=== PATIENT | female | born 1995 | race African-American/Black ===

== ENCOUNTER 2025-06-26 15:24 | Outpatient (CLI) | payer OTHER, SELFPAY ==
[2025-06-26 16:21] LABS: Hematocrit 39.8 % (37.0-47.0); Hemoglobin 13.2 g/dL (12.0-15.0); Mean Corpuscular HGB Conc 33.2 g/dl (32-36); Mean Corpuscular Hemoglobin 30.1 pg (26-34); Mean Corpuscular Volume 90.7 fl (80-100); Platelet Count Result 250 k/mm3 (150-375); Red Blood Count 4.39 M/mm3 (4.2-5.4); White Blood Count 4.7 K/mm3 (4.5-10.0)
[2025-06-26 17:06] LABS: Thyroid Stimulating Hormone Reflex 0.171 uIU/mL (0.465-4.68)
[2025-06-26 17:51] LABS: Free T4 Free Thyroxine Reflex 1.18 ng/dL (0.78-2.19)
--- OUTSIDE RECORDS SUMMARY | 2025-06-26 17:54 | XMS_ITS | Encounter Summary ---
Author Organization [facility] Address [facility] [place] [address] Care Team Providers Care Geospatial Specialist Name Role Phone Rossi Branch MANUFACTURER REPRESENTATIVE Primary Care Provider [phone] Encounter Details Date Type Department Care Team (Late st Contact Info) Description 10/06/2023 Dajie Message Enc [facility] Family Medicine - [address] [place] [address] Rossi [place] [address] Pepcid & stopping point of Carafate Social History Tobacco Use Types Packs/Day Years Used Date Smoking Tobacco: Never Smokeless Tobacco: Never Alcohol Use Standard Drinks/Week Comments Not Currently 0 (1 standard drink = 0.6 oz pure alcohol) I limit alcohol use due to family history and GERD trigger. 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
--- OUTSIDE RECORDS SUMMARY | 2025-06-26 17:54 | XMS_ITS | Encounter Summary ---
Author Organization [facility] Address [facility] [place] [address] Care Team Providers Care Leather Skinner Name Role Phone Rossi Branch USER SUPPORT SPECIALIST Primary Care Provider [phone] Encounter Details Date Type Department Care Team (Late st Contact Info) Description 10/02/2023 Gousto Message Enc [facility] Family Medicine - [address] [address] Rossi Branch NP [address] [place] [address] Upcoming appointment Social History Tobacco Use Types Packs/Day Years Used Date Smoking Tobacco: Never Assessed PHQ-2 Answer Date Recorded Patient Health Questionnaire-2 Score 0 10/05/2023 Comments Unknown Sex and Gender Information Value Date Recorded Sex Assigned at Not on file 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 Question Answer Date of Assessment Author Status Little interest or pleasure in doing things Not at all 10/05/2023 2:02 PM CDT Mala Lockhart MA Active Feeling down, depressed, or hopeless Not at all 10/05/2023 2:02 PM CDT Mala Lockhart MA Activ e Patient Health Questionnaire-2 Score 0 10/05/2023 2:02 PM CDT Mala Lockhart MA Active * Question Answer Date of Assessment Author Status Trouble falling or staying asleep, or sleeping too much Not at all 10/05/2023 2:02 PM CDT Mala Lockhart MA Active Feeling tired or having little energy Not at all 10/05/2023 2:02 PM CDT Mala Lockhart MA Active Poor appetite or overeating Not at all 10/05/2023 2:02 PM RAFALT Mala Lockhart MA Active Feeling bad about yourself - or that you are a failure or have let yourself or your family down Not at all 10/05/2023 2:02 PM CDT Mala Lockhart MA Active Trouble concentrating on things, such as reading the newspaper or watching television Not at all 10/05/2023 2:02 PM CDT Mala Lockhart MA Active Moving or speaking so slowly that other people could have noticed? Or the opposite - being so fidgety or restless that you have been moving around a lot more than usual. Not at all 10/05/2023 2:02 PM CDT Mala Lockhart MA Active Thoughts that you would be better off or hurting yourself in some way Not at all 10/05/2023 2:02 PM CDT Mala Lockhart MA Active Patient Health Questionnaire-9 Score 0 10/05/2023 2:02 PM CDT Mala Lockhart MA Active * Over the last 2 weeks, how often have you been bothered by any of the following problems? Question Answer Date of Assessment Author Status Feeling nervous, anxious, or on edge 0 10/05/2023 2:03 PM CDT Mala Lockhart MA Activ e Not being able to stop or control worrying 0 10/05/2023 2:03 PM CDT Mala Lockhart MA Acti ve Worrying too much about different things 0 10/05/2023 2:03 PM CDT Mala Lockhart MA Acti ve Trouble relaxing 0 10/05/2023 2:03 PM CDT Mala Lockhart MA Active Being so restless that it is hard to sit still 0 10/05/2023 2:03 PM CDT Mala Lockhart MA Act alexander Becoming easily annoyed or irritable 0 10/05/2023 2:03 PM CDT Mala Lockhart MA Activ e Feeling afraid as if something awful might happen 0 10/05/2023 2:03 PM CDT Kip Lockhart MA Active ETHAN-7 Total Score 0 10/05/2023 2:03 PM CDT Mala Lockhart MA Active documented as of this encounter Plan of Treatment Not on file documented as of this encounter Visit Diagnoses Not on filedocumented in this encounter Care Teams Leather Skinner Relationship Specialty Start Date End Date Rossi [place] [address] PCP - General NURSE PRACTITIONER 10/05/23 documented as of this encounter
--- OUTSIDE RECORDS SUMMARY | 2025-06-26 17:54 | XMS_ITS | Clinical Summary ---
Author Organization [facility] Address [facility] [place] [address] Care Team Providers Care Agricultural And Forestry Supervisor Name Role Phone Jose Carlos, Esther JOHANNY Primary Care Provider [phone] Allergies Active Allergy Reactions Criticality Noted Date Comments Hydrocodone Diarrhea,Nausea Only,Headache Medium 10/04 Medications azithromycin (ZITHROMAX) 500 mg tabletIndication s:Campylobacteri osis,Change in stool Take 1 tablet (500 mg total) by mouth daily. 3 tablet 11/04/2023 Active Active Problems Problem Noted Date Diagnosed Date GERD (gastroesophageal reflux disease) 0 PCOS (polycystic ovarian syndrome) 12/02/2016 Family History Medical History Relation Comments Asthma Brother 1 Drug Abuse Brother 2 Asthma Father Cancer Maternal Grandmother Alcohol Abuse Maternal Uncle 1 Alcohol Abuse Maternal Uncle 2 Alcohol Abuse Maternal Uncle 3 Alcohol Abuse Mother Hypertension Mother Relation Status Comments Brother 1 Brother 2 Father Maternal Grandmother Maternal Uncle 1 Maternal Uncle 2 Maternal Uncle 3 Mother Social History Tobacco Use Types Packs/Day Years Used Date Smoking Tobacco: Never Smokeless Tobacco: Never Tobacco Cessation:Counseling Given: No Alcohol Use Standard Drinks/Week Comments Not Currently 0 (1 standard drink = 0.6 oz pure alcohol) I limit alcohol use due to family history and GERD trigger. 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 Gender Identity Not on file Sexual Orientation Not on file Last Filed Vital Signs Vital Sign Reading Time Taken Comments Blood Pressure 122/74 11/04/2023 1:59 PM CDT Pulse 101 11/04/2023 1:59 PM CDT Temperature 37.2 C (98.9 F) 10/05/2023 2:04 PM CDT Respiratory Rate 12 10/05/2023 2:04 PM CDT Oxygen Saturation 100% 11/04/2023 1:59 PM CDT Inhaled Oxygen Concentration - - Weight 75.3 kg (166 lb) 11/04/2023 1:59 PM CDT Height 154.9 cm (5' 1) 11/04/2023 1:59 PM CDT Body Mass Index 31.37 11/04/2023 1:59 PM CDT Plan of Treatment Health Maintenance Due Date Last Done Comments DTaP, Tdap and Td Vaccines ( 1 - Tdap) 2014 Hepatitis B Vaccines (1 of 3 - 19+ 3-dose series) 2014 HPV Vaccines (1 - 3-dose SCD M series) 2022 PHQ-2 (Physician Eyak) 07/11/2024 10/05/2023 Annual Physical 11/03/2024 11/04/2023 COVID-19 Vaccine (2 - 2024-2 6 season) 2025 03/20/2022 Influenza Adult (#1) 2025 Cervical Cancer Screening Pa p Smear (Age 21 to 29) Every 3 Years 11/03/2026 11/04/2023 Cervical Cancer Screening 11/03/2026 Hepatitis C Completed 10/05/2023 Hepatitis A Vaccines Aged Out No long er eligible based on patient's age to complete this topic Meningococcal B Vaccine Aged Out No l onger eligible based on patient's age to complete this topic Meningococcal Vaccine Aged Out No sherron reid eligible based on patient's age to complete this topic Pneumococcal Vaccine: Pediat rics (0 to 5 Years) and At-Risk Patients (6 to 49 Years) Aged Out No longer eligi ble based on patient's age to complete this topic RSV Immunizations Under 20 Months Aged Out No longer eligible based on patient's age to complete this topic Procedures Procedure Name Priority Date/Time Associated Diagnosis Comments CYTOPATH CERV/VAG THIN LAYER Routine 11/04/2023 12:00 AM CDT HEPATITIS C ANTIBODY Routine 10/05/2023 3:25 PM CDT Screen for STD (sexually transmitted disease) from Last 3 Months or Most Recently Relevant to Health Maintenance Results * Cytopath Cerv/Vag Thin Layer (11/04/2023 12:00 AM CDT) THIN PREP PAP [facility] [address] [place] [address] Department of Pathology Pathology Report CERVICAL/VAGINAL PAP SMEAR REPORT Name: LUCA STODDARD Age: 1 1995 (Age: 28) Location: [facility] Sex: F Collected Date: 11/04/2023 [facility] #: [id number] Date Received: 11/07/2023 Date Reported: 11/08/2023 Provider: ESTHER BRANCH NP INTERPRETATION CERVICAL/ENDOCERVI JOSE: SATISFACTORY FOR EVALUATION. ENDOCERVICAL/TRANS FORMATION ZONE COMPONENT ABSENT. NEGATIVE FOR INTRAEPITHELIAL LESION OR MALIGNANCY. Electronically Signed Out By KEAGAN Logan (ASCP) CLINICAL HISTORY Z01.419 WELL WOMAN EXAM SCREENING PAP ThinPrep Pap Test with HR HPV testing in patient > 21 years with ASC-US diagnosis. Date of Last Menstrual Period: 09/13/2023 Menstrual Status: Regular SPECIMEN SUBMITTED CERVICAL/ENDOCERVI JOSE Specimen Received:1 Thin Prep Vial, Image Assisted Pap (SMD) Please note: The Pap smear is not a diagnostic test. It is a screening test. Negative results on combined screening (Pap test and HPV-DNA) have a high negative predictive value (99.1-100 percent) for cervical cancer. The pap test is not effective in detecting cervical adenocarcinoma. [facility] 11/04/2023 11/07/2023 8:4 6 AM CDT Comment:CERVICAL/ENDOCERVICA L us Esther Branch NP PATHOLOGY/CYTOLOGY ORDERABLES F inal Result [facility] [address] [place] [address], * HEPATITIS C ANTIBODY (10/05/2023 3:25 PM CDT) HEPATITIS C AB NON-REACTI VE NON-REACTI VE 10/05/2023 5:32 PM CDT [facility] 10/05/2023 3:25 PM CDT Esther Branch RADAR TECHNICIAN LABORATORY Final Result [facility] [address] [place] [address], from Last 3 Months or Most Recently Relevant to Health Maintenance Insurance MEDICAID Care Teams Agricultural And Forestry Supervisor Relationship Specialty Start Date End Date Esther Branch [place] [address] PCP - General NURSE PRACTITIONER 10/05/23
[2025-06-26 18:30] LABS: Total Triiodothyronine (T3) 1.06 NG/ML (0.82-1.58)
[2025-06-27 16:08] LABS: Deamidated Gliadin Abs, IgA 4 units (0-19); Deamidated Gliadin Abs, IgG 5 units (0-19); Immunoglobulin A, Qn 135 mg/dL (87-352)
== END 2025-06-26 15:25 | disposition home or self-care (01) ==
LOC: ANHLAB 15:25
PROVIDERS: PCP Nurse Practitioner Family; Visit Provider Nurse Practitioner
DX: R19.5 Other fecal abnormalities (principal); Z86.19 Personal history of other infectious and parasitic diseases
CPT/HCPCS: 36415; 82784; 84439; 84443; 84480; 85027; 85652; 86231; 86258

== ENCOUNTER 2025-06-27 11:27 | Outpatient (CLI) | payer OTHER, SELFPAY ==
[2025-06-27 12:24] LABS: Alanine Aminotransferase 16 U/L (6-35); Albumin Level 4.4 g/dL (3.5-5.1); Alkaline Phosphatase 63 U/L (38-126); Anion Gap 5 mmol/L (4-12); Aspartate Amino Transferase 23 U/L (14-36); Bilirubin,Total 0.7 mg/dL (0.2-1.3); Blood Urea Nitrogen 13 mg/dL (7-17); CRP < 0.5 mg/dL (<1.0); Calcium 9.6 mg/dL (8.4-10.2); Carbon Dioxide 28 mmol/L (22-30); Chloride 106 mmol/L (98-107); Estimated Glomerular Filt Rate > 60; Glucose 92 mg/dL (65-110); Potassium 4.1 mmol/L (3.4-5.0); Sodium 139 mmol/L (137-145); Total Protein 8.0 g/dL (6.3-8.2)
--- OUTSIDE RECORDS SUMMARY | 2025-06-27 12:43 | XMS_ITS | Patient Health Record ---
Author Organization [facility] Address [address] [place] [address] Phone [phone] Care Team Providers Care Pump Rebuilder Name Role Phone Fani Emanuel APRN Primary Care Provider [phone] Theo Bowers Unavailable [phone] Allergies No Known Allergies Results Component Value Reference Range Notes Rapid Strep Order date: 05/16/2025 Reviewed date:05/16/2025 10:56:59 AM Interpretation: Performing Lab: Notes/Report: Rapid Strep neg Reason For Referral Referral Date 05/16/2025 Referral Status Open Reason history of campyloba cteria, was treated mucus stool Diagnosis 1 Gastroenteritis (K52 .9) Referral Organization [facility] Referring Provider First Name Fani Referring Provider Last Name Adelfo Referring Provider Speciality Family Med icine Referred Provider [facility] up, Gastroenterology Referred Provider Specialty Gastroentero logy General Notes Insurance is CHAMP V A Clinical Notes Sent Referral to:, [facility], Gastroenterology, [address], [address], [place] [address], P; [phone], F: [phone] Referral Priority Routine Medications Medication SIG (Take, Route, Frequency, Duration) Notes Start Date End Date Diagnosis (ICD Code) Status Benzonatate 100 MG Capsule 1 capsule as needed Orally Three times a day; Duration: 7 days 05/16/2025 Acute pharyngitis, unspecified (ICD_10 - J02.9) Active Social History Tobacco Use: Social History Observation Description Date Details (start date - stop date) Never Smoker NA - NA Sex Observation Social History Observation Description Sex Observation Female Sexual Orientation Social History Observation Description Sexual Orientation Bisexual Gender Identity Social History Observation Description Gender Identity Female SDOH Assessments Date Tool Assessment Assessment LOINC Value Assessment Notes Goals Interventions 05/16/20 25 ANUPAMA (LOINC: 91975-0) Total Score: 1 Date Completed/Upda elvira: 05/16/20 25 What is your current housing situation? 17335-4 I have housing (MJ46363-2) Lives with Are you worried about losing your housing? 43770-1 No (LA32-8) What is the highest level of school that you have finished? 36077-5 High school diploma or GED (RJ53983-5) What is your current work situation? 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 Check all that apply 05561-5 I do not have problems meeting my needs Has lack of transportation kept you from medical appointments, meetings, work or from getting things needed for daily living? 56428-6 No (LA32-8) How often do you see or talk to people that you care about and feel close to? (For example: talking to friends on the phone, visiting friends or family, going to gnosticist or club meetings) 96388-2 More than 5 times a week (AA13633-9) How stressed are you? Stress is when someone feels tense, nervous, anxious, or can\t sleep at night because their mind is troubled 60305-0 Not at all (MW9345-0) In the past year have you spent more than 2 nights in a row in a mcfp, half-way, longterm center, or juvenile correctional facility? 83002-3 No (LA32-8) Do you feel physically and emotionally safe where you currently live? 07124-6 Yes (LA33-6) In the past year, have you been afraid of your partner or ex-partner? 89234-5 No (LA32-8) Are you a refugee? I choose not to answer this question What country are you from? I choose not to answer this question PRAPARE Score: 1 Social History Social Determinants Social Info Question Answer Notes PRAPARE Are you a refugee? I choose not to answer this question What country are you from? I choose not to answer this question Date Completed/Updated: 05/16/2025 What is your current housing situation? I have housing Lives with Are you worried about losing your housing? No What is the highest level of school that you have finished? 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 Check all that apply I do not have problems meeting my needs Has lack of transportation k ept you from medical appointments, meetings, work or from getting things needed for daily living? No How often do you see or talk to people that you care about and feel close to? (For example: talking to friends on the phone, visiting friends or family, going to gnosticist or club meetings) More than 5 times a week How stressed are you? Stress is when someone feels tense, nervous, anxious, or can\t sleep at night because their mind is troubled Not at all In the past year have you sp ent more than 2 nights in a row in a mcfp, half-way, longterm center, or juvenile correctional facility? No Do you feel physically and emotionally safe where you currently live? Yes In the past year, have you b een afraid of your partner or ex-partner? No PRAPARE Score: 1 Primary Social History Social Info Question Answer Notes Tobacco Use - do not use Tobacco Use: Status Reviewed with Patient Employment Status Employment Status: Employed [employer] Alcohol Use Alcohol Use Frequency: Never Tobacco Use: Social Info Question Answer Notes Tobacco Control (Standard) Tobacco use: Nonsmoker Problems Problem Type SNOMED Code ICD Code Dates Problem Status W/U Status Risk Notes Problem Overweight (714596931) Over weight (E66.3) Added On: Active confirmed Vital Signs Vital Sign Value Notes Appt Date Heart Rate 91 /min 05/23/2025 Temperature 100.0 degrees Fahrenheit Respiratory Rate 16 /min 05/23/2025 Oximetry 93 % 05/23/2025 Blood pressure diastolic 64 mm Hg Height 61 in 05/23/2025 Blood pressure systolic 110 mm Hg 05/11 Weight 168.6 lbs 05/23/2025 BMI 31.85 kg/m2 05/23/2025 Encounters Date Time Type Facility Location Provider Diagnosis 08:20 AM Office Visit, New Pt., Level 3 ([address]) [address] [address] Faniisaura Paradangbertha Over weight E66.3 ; Acute pharyngitis, unspecified J02.9 and Gastroenteritis K52.9 025 09:20 AM Office Visit [address] [address] Theo Bowers 025 08:40 AM Office Visit [address] [address] Theo Bowers 025 02:40 PM Office Visit, Est Pt., Level 4 ([address]92) [facility] [address] [place] [address] Fani Tanwangco Over weight E66.3 and Cough R05 025 03:54 PM Telephone Encounter [facility] [address] [address] Faniisaura Emanuel 025 08:54 AM Telephone Encounter [address] [address] Fani Tanwangco Assessments Encounter Date Diagnosis (ICD Code) Assessment Notes Treat ment Notes Section Notes 05/16/2025 Acute pharyngitis, unspecified (ICD-10 - J02.9) Patient presented with sore throat, cough, fever, fatigue, body aches, and nasal/phlegm discharge. Symptoms began five days ago and have gradually improved. No vomiting reported; fever peaked at 101.4 deg F last night. Patient is managing symptoms with OTC medications. - Continue Mucinex, Tylenol, and Ibuprofen for symptom relief. - Monitor symptoms and return if not improved in one to two weeks or if symptoms worsen. - Influenza testing not performed due to timing; antiviral therapy not indicated. - Encourage hydration. 05/23/2025 Cough (ICD-10 - R05) Lingering cough persists mainly at night, as reported by the patient. No fever since before last visit; sore throat has resolved. Patient previously tried benzonatate pearls without relief. Currently using Nyquil at night, which helps with sleep and cough. - Continue Nyquil at night as needed for cough. - Recommended influenza vaccine for routine immunization. 05/16/2025 Over weight (ICD-10 - E66.3) 05/23/2025 Over weight (ICD-10 - E66.3) 05/16/2025 Gastroenteritis (ICD-10 - K52.9) Patient has longstanding GI symptoms including mucus and undigested food in stool, greasy/oily stool, and recurrence of symptoms after eating certain cheeses. History of campylobacter infection last year, treated with Flagyl and Biaxin, but symptoms persisted. Symptoms have recurred and patient has not followed up with GI specialist due to insurance barriers. - Referral to Gastroenterology for further evaluation and management. - Request prior records from previous provider for review. 05/16/2025 Other Learning About the Safe Use of Antibiotics material was discussed. Pt was provided with education regarding safe use of antibioitics, impacts of overuse of antibiotics, why antibiotics were not prescribed in this situation, and when to call the office for continued symptoms. At home treatments discussed based on symptoms. 05/16/2025 Other Construction Grip met with Grace torres to inquire about possible resources and services needed. Construction Grip performed PHQ9 and PRAPARE screenings with client to which client was receptive and during which expressed a desire to begin therapy/counseling services with [facility]. Construction Grip will text the information needed to get scheduled with therapy following this appointment. Construction Grip will check-in with client at next in office visit or as needed for resources and services. 05/16/2025 Other Construction Grip met with Grace Stoddard to assist in working on building skills to help the consumer gain confidence in their independent living skills. The telegraphic typewriter mechanic practiced with Grace Stoddard implementing problem solving skills to help facilitate exploration of options to assist the client with getting medicaid benefits. The telegraphic typewriter mechanic encouraged and engaged in critical thinking of how to use natural resources and coping skills to help manage symptoms in the moment. Construction Grip also worked on modeling and practicing with the consumer healthy coping skills to reduce stress and anxiety including exercising, making notes, and following up with [facility] regarding her medicaid benefits. 05/23/2025 Other Learning About the Safe Use of Antibiotics material was discussed. Pt was provided with education regarding safe use of antibioitics, impacts of overuse of antibiotics, why antibiotics were not prescribed in this situation, and when to call the office for continued symptoms. At home treatments discussed based on symptoms. Plan Of Treatment No Information Medical (General) History Medical History History ICD Code asthma PCI's
--- OUTSIDE RECORDS SUMMARY | 2025-06-27 12:43 | XMS_ITS | Encounter Summary ---
Author Organization [facility] Address [facility] [place] [address] Care Team Providers Care Skid Worker Name Role Phone Rossi Branch DIRECTOR SHOPPER MARKETING Primary Care Provider [phone] Encounter Details Date Type Department Care Team (Late st Contact Info) Description 10/02/2023 Top Rops Message Enc [facility] Family Medicine - [address] [address] Rossi Branch NP [address] [place] [address] Upcoming appointment Social History Tobacco Use Types Packs/Day Years Used Date Smoking Tobacco: Never Assessed PHQ-2 Answer Date Recorded Patient Health Questionnaire-2 Score 0 10/05/2023 Comments Unknown Sex and Gender Information Value Date Recorded Sex Assigned at Not on file Legal Sex Female 1:38 PM 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
--- OUTSIDE RECORDS SUMMARY | 2025-06-27 12:43 | XMS_ITS ---
Author Organization Unknown ENCOUNTERS Encounter Performer Location Date Diagnosis Diagnosis Status Outpatient [facility] [id number] [place] [address] [id number] Outpatient [facility] [id number] [place] [address] [id number] SUREKHA *Note: Encounters from your own facility or health system may be excluded. Allergies, Adverse Reactions, Alerts Allergen Type Severity Identification Date Medications Name Date Quantity Days Supplied GPI Number
--- OUTSIDE RECORDS SUMMARY | 2025-06-27 12:43 | XMS_ITS | Encounter Summary ---
Author Organization [facility] Address [facility] [place] [address] Care Team Providers Care Supervisor Electronics Testing Name Role Phone Rossi Branch G[employer] ASSAYER Primary Care Provider Encounter Details Date Type Department Care Team (Late st Contact Info) Description 10/06/2023 [employer] Message Enc [facility] Family Medicine - [address] [place] [address] Rossi [place] [address] Pepcid & stopping point of [...] on file Legal Sex Female 1:38 PM UTILITY TENDER CARDING Gender Identity Not on file Sexual Orientation Not on file documented as of this encounter Plan of Treatment Not on file documented as of this encounter Visit Diagnoses Not on filedocumented in this encounter Additional Health Concerns Assessment Noted Time PHQ-9 Depression Total Score: 0 10/05/19 24 2:02 PM CDT documented as of this encounter Care Teams Supervisor Electronics Testing Relationship Specialty Start Date End Date Rossi Branch [place] [address] PCP - General NURSE PRACTITIONER 10/05/23 documented as of this encounter
--- OUTSIDE RECORDS SUMMARY | 2025-06-27 12:43 | XMS_ITS | Clinical Summary ---
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 Gender Identity Not on file Sexual Orientation [...] 3-dose SCD M series) 2022 PHQ-2 (Physician [place]) 07/11/2024 10/05/2023 Annual Physical 11/03/2024 11/04/2023 COVID-19 [...] (11/04/2023 12:00 AM CDT) THIN PREP PAP [facility] [address] [place] [address] Department of Pathology Pathology Report CERVICAL/VAGINAL PAP SMEAR REPORT Name: LUCA STODDARD Age: 1 1995 (Age: 28) Location: [facility] Sex: F Collected Date: 11/04/2023 [facility] #: [id number] Date Received: 11/07/2023 Date Reported: 11/08/2023 Provider: [...] is not effective in detecting cervical adenocarcinoma. [facility] 11/04/2023 11/07/2023 8:4 6 AM CDT Comment:CERVICAL/ENDOCERVICA L us Esther Branch NP PATHOLOGY/CYTOLOGY ORDERABLES F inal Result [facility] [address] [place] [address], * HEPATITIS C ANTIBODY (10/05/2023 3:25 PM CDT) HEPATITIS C AB NON-REACTI VE NON-REACTI VE 10/05/2023 5:32 PM CDT [facility] 10/05/2023 3:25 PM CDT Esther Branch COUNTERINTELLIGENCE AGENT LABORATORY Final Result [facility] [address] [place] [address], from Last 3 Months or Most Recently Relevant to Health Maintenance Insurance MEDICAID Care Teams Stem Roller Or Crusher Operator Relationship Specialty Start Date End Date Esther Branch [place] [address] PCP - General NURSE PRACTITIONER 10/05/23
[2025-06-28 18:08] LABS: Deamidated Gliadin Abs, IgA 3 units (0-19); Deamidated Gliadin Abs, IgG 5 units (0-19); Immunoglobulin A, Qn 138 mg/dL (87-352)
[2025-07-01 07:07] LABS: Calprotectin, Fecal 8 ug/g (0-120)
[2025-07-02 18:08] LABS: Pancreatic Elastase, Fecal >800 (>200)
== END 2025-06-27 11:28 | disposition home or self-care (01) ==
PROVIDERS: PCP Nurse Practitioner Family; Visit Provider Nurse Practitioner
DX: R19.5 Other fecal abnormalities (principal); Z86.19 Personal history of other infectious and parasitic diseases
CPT/HCPCS: 36415; 80053; 82653; 82784; 83993; 86140; 86231; 86258; 87177; 87338; 87507